=== PATIENT | male | born 1995 | race Caucasian/White ===

== ENCOUNTER 2023-02-08 03:36 | Emergency (ER) | payer MEDICAID ==
[~2023-02-08] VITALS: Ht 175.3 cm; Wt 90.7 kg
[2023-02-08 03:46] VITALS: BP_SYST 116; PULSE 87; RESP 14; TEMP 98.7; O2SAT 98
[2023-02-08] MEDS ORDERED: LORazepam 2 MG/ML VIAL IVP ONE (04:15)
[2023-02-08] MEDS ORDERED: cloNIDine HCL 0.1 MG TABLET PO ONE (04:15)
[2023-02-08] MEDS ORDERED: ONDANSETRON HCL 4 MG/2 ML VIAL IVP ONE (04:15)
[2023-02-08] MEDS ORDERED: NACL 0.9% 2,000 ML IV ONE (04:15)
[2023-02-08] MEDS ORDERED: BUPRENORPHINE HCL/NALOXONE HCL 2-0.5 MG 1 EACH TAB.SUBL SL ONE ×4 (04:15→04:47)
[2023-02-08 04:27] LABS: BASOPHILS # (AUTO) 0.1 K/uL (0.0-0.2); BASOPHILS % (AUTO) 0.3 % (0.0-2.0); EOSINOPHILS # (AUTO) 0.2 K/uL (0.0-0.4); EOSINOPHILS % (AUTO) 0.5 % (0.0-4.0); HEMATOCRIT 47.7 % (36-54); HEMOGLOBIN 15.7 g/dL (14.0-18.0); LYMPHOCYTES # (AUTO) 1.8 K/uL (1.0-5.5); MEAN CORPUSCULAR HEMOGLOBIN 30 pg (27-31); MEAN CORPUSCULAR HGB CONC 33 % (32-36); MEAN CORPUSCULAR VOLUME 91 fL (79.0-98.0); MONOCYTES # (AUTO) 2.3 K/uL (0.0-1.0); MONOCYTES % (AUTO) 7.7 % (1.7-9.3); NEUTROPHILS # (AUTO) 26.1 K/uL (1.8-7.7); NEUTROPHILS % (AUTO) 85.5 % (40.0-70.0); PLATELET COUNT (AUTO) 423 K/uL (130-430); RED BLOOD CELL COUNT(AUTO) 5.25 MIL/uL (4.2-6.2); RED CELL DISTRIBUTION WIDTH 13.2 % (9.0-15.0)
[2023-02-08 04:56] LABS: WHITE BLOOD COUNT (AUTO) 30.6 K/uL (4.8-10.8)
[2023-02-08 05:18] LABS: ALANINE AMINOTRANSFERASE 39 U/L (12-78); ANION GAP 14 (5-15); ASPARTATE AMINOTRANSFERASE 17 U/L (10-37); CARBON DIOXIDE 28 mmol/L (23-29); CHLORIDE 88 mmol/L (98-107); CREATINE KINASE, TOTAL 83 U/L (39-308); CREATININE 1.13 mg/dL (0.55-1.30); GFR AFRICAN AMERICAN 99 mL/min (>90); GLUCOSE 142 mg/dL (74-106); SODIUM SERUM 130 mmol/L (136-145); TOTAL PROTEIN, SERUM 8.7 g/dL (6.4-8.3); UREA NITROGEN, BLOOD 20 mg/dL (8-21)
[2023-02-08 05:19] LABS: ALCOHOL, BLOOD < 3 mg/dL (<10); GFR NON AFRICAN-AMERICAN 82 mL/min (>90)
[2023-02-08 05:20] LABS: POTASSIUM 2.9 mmol/L (3.5-5.1)
[2023-02-08] MEDS ORDERED: BUPR1FIL3 SL ×4 (05:22→05:52)
[2023-02-08] MEDS ORDERED: POTASSIUM CHLORIDE 20 MEQ/PKT PACKET PO ONE (06:00)
[2023-02-08 06:40] VITALS: BP_SYST 134; PULSE 86; RESP 18; TEMP 97.2; O2SAT 100
== END 2023-02-08 06:40 | disposition home or self-care (01) ==
LOC: SED 03:36
DX: F11.23 Opioid dependence with withdrawal (principal); R11.10 Vomiting, unspecified; E87.6 Hypokalemia; Z79.899 Other long term (current) drug therapy
CPT/HCPCS: 99291; 96374; 96361; 96375; 80053; 82550; 85025; 36415; 71045; G0482; J2060; J2405; J7030